=== PATIENT | female | born 1965 | race Caucasian/White ===

== ENCOUNTER 2020-04-30 06:35 | Day surgery (SDC) | payer BC ==
[~2020-04-30 06:35] MED LIST: Lactated Ringers 1,000 ML IV SCH
[2020-04-30] MEDS ORDERED: Midazolam 1 MG/ML 2 ML SDV ONE (06:59)
[2020-04-30] MEDS ORDERED: Propofol 200 MG/20 ML SDV ONE (06:59)
[2020-04-30] MEDS ORDERED: Ondansetron 4 MG/2 ML SDV ONE (06:59)
[2020-04-30] MEDS ORDERED: Lidocaine 2% 5 ML SDV ONE (06:59)
[2020-04-30] MEDS ORDERED: fentaNYL 250 MCG/5 ML SDV ONE (07:00)
--- NOTE | 2020-04-30 07:04 | PCM.PREANE ---
Preanesthetic Assessment - Anesthesia/Transfusion/Family Hx Anesthesia History: Prior Anesthesia Without Reaction Family History of Anesthesia Reaction: No Transfusion History: No Prior Transfusion(s) Intubation History: Unknown - Review of Systems General: No Symptoms Pulmonary: No Symptoms Cardiovascular: No Symptoms Gastrointestinal: No Symptoms Neurological: No Symptoms Other: Reports: None - Physical Assessment Height: 5 ft 0.75 in Weight: 77.111 kg ASA Class: 2 Mental Status: Alert & Oriented x3 Airway Class: Mallampati = 3 Dentition: Reports: Normal Dentition Thyro-Mental Finger Breadths: 3 Mouth Opening Finger Breadths: 2 ROM/Head Extension: Full Lungs: Clear to Auscultation, Normal Respiratory Effort Cardiovascular: Regular Rate, Regular Rhythm - Allergies Allergies/Adverse Reactions: Allergies Allergy/AdvReac Type Severity Reaction Status Date / Time No Known Allergies Allergy Verified 04/24/20 08:35 - Blood Blood Available: No - Anesthesia Plan Pre-Op Medication Ordered: None - Acknowledgements Anesthesia Type Planned: General Anesthesia Pt an Appropriate Candidate for the Planned Anesthesia: Yes Alternatives and Risks of Anesthesia Discussed w Pt/Guardian: Yes Pt/Guardian Understands and Agrees with Anesthesia Plan: Yes PreAnesthesia Questionnaire HEENT History: Reports: Other (See Below) Other HEENT History: wears glasses Cardiovascular History: Reports: High Cholesterol Other Cardiovascular History: takes lisinopril to protect her kidneys due to diabetes Respiratory History: Reports: None Gastrointestinal History: Reports: GERD Genitourinary History: Reports: Other (See Below) Other Genitourinary History: stress incontinence [employer] OFFICER History: Reports: Musculoskeletal History: Reports: Fracture Other Musculoskeletal History: hx fx rt hand Neurological History: Reports: None Psychiatric History: Reports: None Endocrine/Metabolic History: Reports: Diabetes, Type II, Obesity/BMI 30+ (BMI 32.4) Hematologic History: Reports: None Immunologic History: Reports: Other (See Below) (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) Oncologic (Cancer) History: Reports: None Dermatologic History: Reports: None - Past Surgical History Head Surgeries/Procedures: Reports: None HEENT Surgical History: Reports: Tonsillectomy Cardiovascular Surgical History: Reports: None Respiratory Surgical History: Reports: None GI Surgical History: Reports: None Female Surgical History: Reports: D&C, Hysterectomy, Salpingo-Oophorectomy Endocrine Surgical History: Reports: None Neurological Surgical History: Reports: None Musculoskeletal Surgical History: Reports: Other (See Below) Other Musculoskeletal Surgeries/Procedures:: rt ankle surgery, tendons clipped to both feet for planter fasciaitis Oncologic Surgical History: Reports: None Dermatological Surgical History: Reports: None - SUBSTANCE USE Tobacco Use Status *Q: Never Tobacco User Recreational Drug Use History: No - HOME MEDS Home Medications: Home Meds Calcium Carb,Gluc/Mag Ox,Gluc [Calcium Magnesium Caplet] 1 tab PO BEDTIME 04/24/20 [History] Cholecalciferol (Vitamin D3) [Vitamin D3] 5,000 units PO BEDTIME 04/24/20 [History] Insulin Glargine,Hum.Rec.Anlog [Lantus Solostar] 25 units SUBCUT DAILY 04/24/20 [History] Omeprazole 10 mg PO DAILY 04/24/20 [History] Potassium Gluconate [Potassium] 99 mg PO BEDTIME 04/24/20 [History] Pravastatin [Pravachol] 20 mg PO BEDTIME 04/24/20 [History] estradioL [Estradiol] 1 mg PO DAILY 04/24/20 [History] lisinopriL [Lisinopril] 10 mg PO DAILY 04/24/20 [History] metFORMIN HCl [Metformin HCl] 4 tab PO DAILY 04/24/20 [History] - CURRENT (IN HOUSE) MEDS Current Meds: Current Medications Lactated Ringer's (Ringers, Lactated) 1,000 mls @ 125 mls/hr IV ASDIRECTED BLADIMIR
[2020-04-30] MEDS ORDERED: Lidocaine 1% with EPINEPHrine 1:100,000 20 ML MDV ONE (07:15)
[2020-04-30] MEDS ORDERED: Neomycin/Polymyxin B Bladder Irrigation 1 ML Amp ONE (07:15)
[2020-04-30] MEDS ORDERED: Bupivacaine 0.25% 10 ML SDV ONE (07:15)
[2020-04-30 07:49] LABS: BLOOD UREA NITROGEN,BUN 17 mg/dL (7.0-18.0); CHLORIDE,CL 103 mmol/L (98-107); GLUCOSE RANDOM 224 mg/dL (74-106); POTASSIUM,K 4.1 mmol/L (3.5-5.1); SODIUM,NA 139 mmol/L (136-145)
[2020-04-30] MEDS ORDERED: Sodium Chloride 0.9% 20 ML ONE (08:15)
[2020-04-30] MEDS ORDERED: ceFAZolin 1 GM Vial ONE (08:15)
[2020-04-30] MEDS ORDERED: Naloxone 0.4 MG/ML Syringe IVPUSH PRN (08:18)
[2020-04-30] MEDS ORDERED: Atropine 0.1 MG/ML 10 ML Syringe IVPUSH PRN ×2 (08:18)
[2020-04-30] MEDS ORDERED: EPINEPHrine 1:10,000 1 MG/10 ML Syringe IVPUSH PRN (08:18)
[2020-04-30] MEDS ORDERED: 50% Dextrose in Water 50 ML Syringe IVPUSH PRN (08:18)
[2020-04-30] MEDS ORDERED: fentaNYL 100 MCG/2 ML SDV IVPUSH PRN (08:18)
[2020-04-30] MEDS ORDERED: Albuterol 0.083% 2.5 MG/3 ML Neb Soln NEB PRN (08:18)
[2020-04-30] MEDS ORDERED: Promethazine 25 MG/ML SDV IM PRN (08:48)
[2020-04-30] MEDS ORDERED: Morphine 4 MG/ML Syringe IVPUSH PRN (08:48)
[2020-04-30] MEDS ORDERED: Acetaminophen/oxyCODONE 325-5 MG Tab PO PRN ×2 (08:48)
[2020-04-30] MEDS ORDERED: Ketorolac 30 MG/ML SDV IVPUSH ONE (08:48)
[2020-04-30] MEDS ORDERED: Ondansetron 4 MG/2 ML SDV IVPUSH PRN (08:48)
--- NOTE | 2020-04-30 08:48 | PCM.OPNOTE ---
- General Post-Op/Procedure Note Date of Surgery/Procedure: 04/30/20 Operative Procedure(s): anterior colporrhaphy, single incision mid-urethral sling. Findings: 3rd degree cystocele, urethral hypermobility. Pre Op Diagnosis: symptomatic third degree cystocele with stress urinary incontinence. Post-Op Diagnosis: Same Anesthesia Technique: General ET Tube Primary Surgeon: Carissa Faustin Secondary Surgeon: Edu Mullins Anesthesia Provider: Ean Kwok Poker Manager: Daniel Torres Pathology: vaginal mucosa Fluid Replacement, Intraop: 1,000 EBL in mLs: 50 Drain/Tube Comments:: vaginal packing in place, barnes catheter in place Complications: None known Condition: Good
[2020-04-30] MEDS ORDERED: Glucagon,Human Recombinant 1 MG Vial IM PRN ×3 (08:53→11:59)
[2020-04-30] MEDS ORDERED: Insulin Regular, Human 100 Units/ML 10 ML Vial IVPUSH ONE (08:53)
[2020-04-30] MEDS ORDERED: 50% Dextrose in Water 50 ML Syringe IV PRN ×3 (08:53→11:59)
[2020-04-30] MEDS ORDERED: Non-Formulary Medication 1 Each (Omeprazole [Omeprazole] 10 MG) PO SCH (09:00)
[2020-04-30] MEDS ORDERED: Acetaminophen 1,000 MG in Premix Bag 1 BAG IV ONE (09:13)
--- NOTE | 2020-04-30 09:39 | PCM.POSTAN ---
POST ANESTHESIA ASSESSMENT - MENTAL STATUS Mental Status: Alert, Oriented - VITAL SIGNS Vital Signs: Last Vital Signs Temp 36.2 C 04/30/20 08:41 Pulse 74 04/30/20 09:31 Resp 12 04/30/20 09:31 BP 138/64 04/30/20 09:31 Pulse Ox 98 04/30/20 09:31 - RESPIRATORY Respiratory Status: Respiratory Rate WNL, Airway Patent, O2 Saturation Stable - CARDIOVASCULAR CV Status: Pulse Rate WNL, Blood Pressure Stable - GASTROINTESTINAL GI Status: No Symptoms - PAIN Pain Score: 2 - POST OP HYDRATION Hydration Status: Adequate & Stable - OBSERVATIONS Free Text/Narrative:: No anesthesia problems
[2020-04-30] MEDS: Insulin Glargine,Human Rec. Analog 100 Units/ML 3 ML Pen SUBCUT SCH (10:13)
[2020-04-30] MEDS: Lisinopril 10 MG Tab PO SCH (10:15)
[2020-04-30] MEDS: Ketorolac 15 MG/ML SDV IVPUSH SCH ×3 (10:17→21:45)
[2020-04-30] MEDS: Insulin Regular, Human 100 Units/ML 10 ML Vial SUBCUT SCH ×2 (12:41→19:02)
--- NOTE | 2020-04-30 12:47 | OR ---
SURGEON: Carissa Faustin M.D. DATE OF PROCEDURE: 04/30/2020 PREOPERATIVE DIAGNOSIS: Third-degree cystocele, stress urinary incontinence. POSTOPERATIVE DIAGNOSIS: Third-degree cystocele, stress urinary incontinence. PROCEDURE: Anterior colporrhaphy with midurethral single-incision sling. PRIMARY SURGEON: Carissa Faustin MD MONITORING COORDINATOR: Edu Mullins MD ANESTHESIA: General endotracheal. FLUIDS: 1000 mL of crystalloid. ESTIMATED BLOOD LOSS: 50 mL. FINDINGS: Third-degree , urethral hypermobility. COMPLICATIONS: None known. DISPOSITION: Stable to Recovery. BRIEF HISTORY: This is a 54-year-old female. She has frequent urination, a large amount, worse at night, and incontinence with coughing or sneezing. She has had a cystometry with reduction of the cystocele with demonstrated stress incontinence and urethral hypermobility. She has been treated for UTI symptoms and has had a negative followup culture. She would like to proceed with a midurethral sling at the time of anterior colporrhaphy. She has been counseled regarding the Solyx midurethral sling. She has been provided with a Stepsss pamphlet. She has been provided with information on Kegel exercises and declines conservative management. She has completed her preoperative primary care assessment due to diabetes. She was treated for bacterial vaginosis at the time of her initial evaluation for dyspareunia and the symptoms of dyspareunia have resolved. She, therefore, has a symptomatic third-degree cystocele with episodes of difficulty initiating voiding with stress urinary incontinence with reduction of the cystocele. She is, therefore, consented for an anterior colporrhaphy with Solyx single-incision midurethral sling with risks discussed including bleeding; infection; injury to bowel, bladder, blood vessels, ureters, or other organs; risk of thromboembolic event; risk of recurrence of 30% to 40%; risk of new onset of stress incontinence; risk of anesthesia; and risk of dyspareunia. With the Solyx, additional risk of mesh erosion; injury to nerves, urethra, bladder, and ureter; and possibility of requiring short-term catheterization. Understanding all these, she does desire to proceed. DESCRIPTION OF PROCEDURE: With the patient in the dorsal lithotomy position, the perineum and vagina were prepped with Betadine and draped in the usual fashion for a vaginal surgery. SCDs were in place. Ramírez catheter had been placed. An appropriate time-out was held. She had received 2 g of Ancef IV. The patient was placed in Trendelenburg position. A weighted speculum was placed posteriorly. An Allis clamp was placed approximately 2.5 cm cephalad from the urethral meatus. Hydrodissection was performed beneath the cystocele. A midline incision was initiated with a scalpel and Metzenbaum scissors were used to undermine the vaginal mucosa. The muscularis layer was from the overlying vaginal mucosa and reapproximated in the midline using multiple interrupted mattress sutures of 2-0 Polysorb. The vaginal mucosa was very slightly trimmed and reapproximated with a running lock suture of 0 Polysorb. Attention was then turned to the urethra. The Ramírez bulb was palpated indicating the length of the urethra and the Allis clamps were placed approximately 1.5 cm apart at the internal and external portion of the urethra. Hydrodissection was performed beneath the midline and extending out toward the pubic ramus on the right and the left. An incision was made with a scalpel in the midline. The Metzenbaum scissors were utilized to dissect out toward the pubic ramus to the right and the left. The Solyx midurethral sling was placed initially through the vaginal mucosa at a 45-degree angle aiming towards the pubic ramus and then passing more laterally through the obturator foramen. The first arm was released. The second arm was placed in a similar fashion. Metzenbaum scissors were placed between the sling and the urethra, and I was able to easily pass the Metzenbaum scissors and the urethra was well supported. Therefore, the second arm was released. The vaginal mucosa was closed with a running lock suture of 3-0 Polysorb. The vagina was packed. The Ramírez catheter was left in place. Final sponge, needle, and instrument counts were reported as correct. There were no known complications. The patient was transferred to Recovery. MALICK KING /[id number]
[2020-04-30] MEDS: Omeprazole 20 MG Cap.CR PO SCH (15:21)
[2020-04-30] MEDS ORDERED: Insulin Regular, Human 100 Units/ML 10 ML Vial SUBCUT SCH (17:00)
[2020-04-30] MEDS ORDERED: Pravastatin 40 MG Tab PO SCH (21:00)
[2020-05-01] MEDS: Ketorolac 15 MG/ML SDV IVPUSH SCH ×2 (03:45→09:39)
[2020-05-01] MEDS: Insulin Regular, Human 100 Units/ML 10 ML Vial SUBCUT SCH (06:38)
[2020-05-01] MEDS: Omeprazole 20 MG Cap.CR PO SCH (06:41)
[2020-05-01 07:03] LABS: BLOOD UREA NITROGEN,BUN 17 mg/dL (7.0-18.0); CARBON DIOXIDE,CO2 30.6 mmol/L (21.0-32.0); CHLORIDE,CL 103 mmol/L (98-107); GLUCOSE RANDOM 165 mg/dL (74-106); POTASSIUM,K 4.5 mmol/L (3.5-5.1); SODIUM,NA 140 mmol/L (136-145)
--- NOTE | 2020-05-01 07:44 | PCM48HPAN ---
Post Anesthesia Note - EVALUATION WITHIN 48HRS OF ANESTHETIC Vital Signs in Normal Range: Yes Patient Participated in Evaluation: Yes Respiratory Function Stable: Yes Airway Patent: Yes Cardiovascular Function Stable: Yes Hydration Status Stable: Yes Pain Control Satisfactory: Yes Nausea and Vomiting Control Satisfactory: Yes Mental Status Recovered: Yes Vital Signs: Last Vital Signs Temp 36.7 C 05/01/20 04:10 Pulse 71 05/01/20 04:10 Resp 16 05/01/20 04:10 BP 117/63 05/01/20 04:10 Pulse Ox 92 L 05/01/20 04:10 - COMMENTS/OBSERVATIONS Free Text/Narrative:: No anesthesia problems
--- NOTE | 2020-05-01 09:03 | PCM.SURGPN ---
- General Info Date of Service: 05/01/20 Date of Surgery/Procedure: 04/30/20 POD#: 1 Functional Status: Reports: Pain Controlled, Tolerating Diet, Ambulating, Urinating - Review of Systems General: Reports: No Symptoms HEENT: Reports: No Symptoms Pulmonary: Reports: No Symptoms Cardiovascular: Reports: No Symptoms Gastrointestinal: Reports: No Symptoms Genitourinary: Reports: No Symptoms Musculoskeletal: Reports: No Symptoms Skin: Reports: No Symptoms Neurological: Reports: No Symptoms Psychiatric: Reports: No Symptoms - Patient Data Vitals - Most Recent: Last Vital Signs Temp 36.7 C 05/01/20 04:10 Pulse 71 05/01/20 04:10 Resp 16 05/01/20 04:10 BP 117/63 05/01/20 04:10 Pulse Ox 92 L 05/01/20 04:10 Weight - Most Recent: 77.111 kg I&O - Last 24 Hours: Intake & Output 04/30/20 05/01/20 05/01/20 22:59 06:59 14:59 Intake Total 500 200 Output Total 350 700 Balance 150 -500 Lab Results Last 24 Hrs: Laboratory Results - last 24 hr 04/30/20 04/30/20 04/30/20 Range/Units 07:06 10:08 11:57 WBC (4.0-11.0) K/uL RBC (4.30-5.90) M/uL Hgb (12.0-16.0) g/dL Hct (36.0-46.0) % MCV (80.0-98.0) fL MCH (27.0-32.0) pg MCHC (31.0-37.0) g/dL RDW Std Deviation (28.0-62.0) fl RDW Coeff of Phuc (11.0-15.0) % Plt Count (150-400) K/uL MPV (7.40-12.00) fL Neut % (Auto) (48.0-80.0) % Lymph % (Auto) (16.0-40.0) % [place]own[place] % (Auto) (0.0-15.0) % Eos % (Auto) (0.0-7.0) % Baso % (Auto) (0.0-1.5) % Neut # (Auto) (1.4-5.7) K/uL Lymph # (Auto) (0.6-2.4) K/uL [place]own[place] # (Auto) (0.0-0.8) K/uL Eos # (Auto) (0.0-0.7) K/uL Baso # (Auto) (0.0-0.1) K/uL Nucleated RBC % /100WBC Nucleated RBCs # K/uL Sodium (136-145) mmol/L Potassium (3.5-5.1) mmol/L Chloride (98-107) mmol/L Carbon Dioxide (21.0-32.0) mmol/L BUN (7.0-18.0) mg/dL Creatinine (0.6-1.0) mg/dL Est Cr Clr Drug Dosing mL/min Estimated GFR (MDRD) ml/min Glucose (74-106) mg/dL POC Glucose 203 H 194 H 152 H (60-110) mg/dL Calcium (8.5-10.1) mg/dL 04/30/20 05/01/20 05/01/20 Range/Units 17:45 05:55 06:18 WBC 6.37 (4.0-11.0) K/uL RBC 3.96 L (4.30-5.90) M/uL Hgb 11.5 L (12.0-16.0) g/dL Hct 35.5 L (36.0-46.0) % MCV 89.6 (80.0-98.0) fL MCH 29.0 (27.0-32.0) pg MCHC 32.4 (31.0-37.0) g/dL RDW Std Deviation 41.8 (28.0-62.0) fl RDW Coeff of Phuc 13 (11.0-15.0) % Plt Count 204 (150-400) K/uL MPV 10.10 (7.40-12.00) fL Neut % (Auto) 57.7 (48.0-80.0) % Lymph % (Auto) 31.7 (16.0-40.0) % [place]own[place] % (Auto) 7.1 (0.0-15.0) % Eos % (Auto) 2.7 (0.0-7.0) % Baso % (Auto) 0.8 (0.0-1.5) % Neut # (Auto) 3.7 (1.4-5.7) K/uL Lymph # (Auto) 2.0 (0.6-2.4) K/uL Lowndes # (Auto) 0.5 (0.0-0.8) K/uL Eos # (Auto) 0.2 (0.0-0.7) K/uL Baso # (Auto) 0.1 (0.0-0.1) K/uL Nucleated RBC % 0.0 /100WBC Nucleated RBCs # 0 K/uL Sodium (136-145) mmol/L Potassium (3.5-5.1) mmol/L Chloride (98-107) mmol/L Carbon Dioxide (21.0-32.0) mmol/L BUN (7.0-18.0) mg/dL Creatinine (0.6-1.0) mg/dL Est Cr Clr Drug Dosing mL/min Estimated GFR (MDRD) ml/min Glucose (74-106) mg/dL POC Glucose 120 H 188 H (60-110) mg/dL Calcium (8.5-10.1) mg/dL 05/01/20 Range/Units 06:18 WBC (4.0-11.0) K/uL RBC (4.30-5.90) M/uL Hgb (12.0-16.0) g/dL Hct (36.0-46.0) % MCV (80.0-98.0) fL MCH (27.0-32.0) pg MCHC (31.0-37.0) g/dL RDW Std Deviation (28.0-62.0) fl RDW Coeff of Phuc (11.0-15.0) % Plt Count (150-400) K/uL MPV (7.40-12.00) fL Neut % (Auto) (48.0-80.0) % Lymph % (Auto) (16.0-40.0) % [place] % (Auto) (0.0-15.0) % Eos % (Auto) (0.0-7.0) % Baso % (Auto) (0.0-1.5) % Neut # (Auto) (1.4-5.7) K/uL Lymph # (Auto) (0.6-2.4) K/uL [place] # (Auto) (0.0-0.8) K/uL Eos # (Auto) (0.0-0.7) K/uL Baso # (Auto) (0.0-0.1) K/uL Nucleated RBC % /100WBC Nucleated RBCs # K/uL Sodium 140 (136-145) mmol/L Potassium 4.5 (3.5-5.1) mmol/L Chloride 103 (98-107) mmol/L Carbon Dioxide 30.6 (21.0-32.0) mmol/L BUN 17 (7.0-18.0) mg/dL Creatinine 0.8 (0.6-1.0) mg/dL Est Cr Clr Drug Dosing 58.54 mL/min Estimated GFR (MDRD) > 60.0 ml/min Glucose 165 H (74-106) mg/dL POC Glucose (60-110) mg/dL Calcium 9.1 (8.5-10.1) mg/dL Med Orders - Current: Current Medications Dextrose/Water (Dextrose 50% In Water) 50 ml IV ASDIRECTED PRN PRN Reason: Hypoglycemia Glucagon (Glucagen) 1 mg IM ASDIRECTED PRN PRN Reason: Hypoglycemia Insulin Glargine (Lantus Solostar) 25 units SUBCUT DAILY [facility] Last Admin: 04/30/20 10:13 Dose: 25 unit Documented by: Insulin Human Regular (Novolin R) 0 unit SUBCUT TIDAC [facility]; Protocol Last Admin: 05/01/20 06:38 Dose: 2 unit Documented by: Ketorolac Tromethamine (Toradol) 15 mg IVPUSH Q6H [facility] Last Admin: 05/01/20 03:45 Dose: 15 mg Documented by: Lisinopril (Prinivil) 10 mg PO DAILY [facility] Last Admin: 04/30/20 10:15 Dose: 10 mg Documented by: Morphine Sulfate (Morphine) 4 mg IVPUSH Q2H PRN PRN Reason: Pain (severe 7-10) Omeprazole (Omeprazole) 20 mg PO ACBREAKFAST [facility] Last Admin: 05/01/20 06:41 Dose: 20 mg Documented by: Ondansetron HCl (Zofran) 4 mg IVPUSH Q6H PRN PRN Reason: Nausea/Vomiting Oxycodone/Acetaminophen (Percocet 325-5 Mg) 1 tab PO Q4H PRN PRN Reason: Pain (moderate 4-6) Last Admin: 04/30/20 16:38 Dose: 1 tab Documented by: Oxycodone/Acetaminophen (Percocet 325-5 Mg) 2 tab PO Q4H PRN PRN Reason: Pain (moderate 4-6) Pravastatin Sodium (Pravachol) 20 mg PO BEDTIME [facility] Last Admin: 04/30/20 21:44 Dose: 20 mg Documented by: Promethazine HCl (Phenergan) 25 mg IM Q6H PRN PRN Reason: Nausea/Vomiting Discontinued Medications Albuterol (Proventil Neb Soln) 2.5 mg NEB ONETIME PRN PRN Reason: Wheezing Atropine Sulfate (Atropine 0.1 Mg/Ml) 0.5 mg IVPUSH ASDIRECTED PRN PRN Reason: Hypo-perfusion Atropine Sulfate (Atropine 0.1 Mg/Ml) 1 mg IVPUSH ASDIRECTED PRN PRN Reason: Hypo-Perfusion Bupivacaine HCl (Sensorcaine-Mpf 0.25%) Confirm Administered Dose 10 ml .ROUTE .STK-MED ONE Stop: 04/30/20 07:16 Cefazolin Sodium (Ancef) Confirm Administered Dose 2 gm .ROUTE .STK-MED ONE Stop: 04/30/20 08:16 Dextrose/Water (Dextrose 50% In Water) 50 ml IVPUSH ASDIRECTED PRN PRN Reason: Hypoglycemia Epinephrine HCl (Epinephrine 1:10,000) 1 mg IVPUSH ASDIRECTED PRN PRN Reason: ACLS Guidelines Fentanyl (Sublimaze) Confirm Administered Dose 250 mcg .ROUTE .STK-MED ONE Stop: 04/30/20 07:01 Fentanyl (Sublimaze) 50 - 100 mcg IVPUSH Q5M PRN PRN Reason: Pain Last Admin: 04/30/20 09:20 Dose: 50 mcg Documented by: Lactated Ringer's (Ringers, Lactated) 1,000 mls @ 125 mls/hr IV ASDIRECTED [facility] Last Admin: 04/30/20 06:55 Dose: 125 mls/hr Documented by: Sodium Chloride (Normal Saline) Confirm Administered Dose 20 mls @ as directed .ROUTE .STK-MED ONE Stop: 04/30/20 08:16 Acetaminophen 1,000 mg/ Premix 100 mls @ 400 mls/hr IV NOW ONE Stop: 04/30/20 09:27 Last Admin: 04/30/20 09:15 Dose: 400 mls/hr Documented by: Acetaminophen (Ofirmev) Confirm Administered Dose 100 mls @ as directed .ROUTE .STK-MED ONE Stop: 04/30/20 09:15 Last Admin: 04/30/20 11:49 Dose: Not Given Documented by: Insulin Human Regular (Novolin R) 1 unit IVPUSH ONETIME ONE; Protocol Stop: 04/30/20 08:54 Last Admin: 04/30/20 12:20 Dose: Not Given Documented by: Insulin Human Regular (Novolin R) 0 unit SUBCUT TIDAC [facility]; Protocol Ketorolac Tromethamine (Toradol) 15 mg IVPUSH ONETIME ONE Stop: 04/30/20 08:49 Last Admin: 04/30/20 08:58 Dose: 15 mg Documented by: Lidocaine (Xylocaine-Mpf 2%) Confirm Administered Dose 5 ml .ROUTE .STK-MED ONE Stop: 04/30/20 07:00 Lidocaine/Epinephrine (Xylocaine 1% With Epinephrine 1:100,000) Confirm Administered Dose 20 ml .ROUTE .STK-MED ONE Stop: 04/30/20 07:16 Midazolam HCl (Versed 1 Mg/Ml) Confirm Administered Dose 2 mg .ROUTE .STK-MED ONE Stop: 04/30/20 07:00 Naloxone HCl (Narcan) 0.1 mg IVPUSH ASDIRECTED PRN PRN Reason: Respiratory Depression Neomycin/Polymyxin (Neosporin Gu Irrigant) Confirm Administered Dose 1 ml .ROUTE .STK-MED ONE Stop: 04/30/20 07:16 Non-Formulary Medication (Omeprazole [Omeprazole]) 10 mg PO DAILY [facility] Last Admin: 04/30/20 11:50 Dose: Not Given Documented by: Ondansetron HCl (Zofran) Confirm Administered Dose 4 mg .ROUTE .STK-MED ONE Stop: 04/30/20 07:00 Propofol (Diprivan 20 Ml) Confirm Administered Dose 200 mg .ROUTE .STK-MED ONE Stop: 04/30/20 07:00 - Exam General: Alert Cardiovascular: Regular Rate, Regular Rhythm GI/Abdominal Exam: Normal Bowel Sounds, Soft, Non-Tender, No Organomegaly, No Distention, No Abnormal Bruit, No Mass Extremities: Normal Inspection, Non-Tender, No Pedal Edema Skin: Warm, Dry, Intact Neurological: No New Focal Deficit Psy/Mental Status: Alert, Normal Affect, Normal Mood Sepsis Event Note - Evaluation Sepsis Screening Result: No Definite Risk - Focused Exam Vital Signs: Vital Signs Temp Pulse Resp BP Pulse Ox 05/01/20 04:10 36.7 C 71 16 117/63 92 L 05/01/20 00:23 36.4 C 76 16 118/67 94 L - Problem List & Annotations (1) Cystocele SNOMED Code(s): 194129218 Code(s): FWZ6922 - Status: Acute Current Visit: Yes (2) Stress incontinence SNOMED Code(s): 84262078 Code(s): N39.3 - STRESS INCONTINENCE (FEMALE) (MALE) Status: Acute Current Visit: Yes - Problem List Review Problem List Initiated/Reviewed/Updated: Yes - My Orders Last 24 Hours: Active Orders 24 hr Category Date Time Status Patient Status [ADT] Routine ADT 04/30/20 08:48 Active Antiembolic Devices [RC] PER UNIT ROUTINE Care 04/30/20 08:49 Active Blood Glucose Check, Bedside [RC] PRN Care 04/30/20 08:18 Active Blood Glucose Check, Bedside [RC] QIDACANDBED Care 04/30/20 08:48 Active Notify Provider Intake and Out [RC] ASDIRECTED Care 04/30/20 08:48 Active Notify Provider Vital Signs [RC] ASDIRECTED Care 04/30/20 08:18 Active Notify Provider Vital Signs [RC] ASDIRECTED Care 04/30/20 08:48 Active Oxygen Therapy [RC] ASDIRECTED Care 04/30/20 08:48 Active Oxygen Therapy [RC] PRN Care 04/30/20 08:18 Active RT Aerosol Therapy [RC] ASDIRECTED Care 04/30/20 08:18 Active RT Aerosol Therapy [RC] ASDIRECTED Care 04/30/20 08:18 Active RT Aerosol Therapy [RC] ASDIRECTED Care 04/30/20 08:18 Active RT Incentive Spirometry [RC] Q2HWA Care 04/30/20 08:48 Active Ready for Discharge [RC] PER UNIT ROUTINE Care 05/01/20 09:00 Ordered Up With Assistance [RC] PER UNIT ROUTINE Care 04/30/20 08:48 Active Up ad Milagro [RC] PER UNIT ROUTINE Care 04/30/20 08:48 Active Vital Signs [RC] PER UNIT ROUTINE Care 04/30/20 08:48 Active Vital Signs [RC] Q5M Care 04/30/20 08:18 Active Consistent Carbohydrate Diet [DIET] Diet 04/30/20 Lunch Active Acetaminophen/oxyCODONE [Percocet 325-5 MG] Med 04/30/20 08:48 Active 1 tab PO Q4H PRN Acetaminophen/oxyCODONE [Percocet 325-5 MG] Med 04/30/20 08:48 Active 2 tab PO Q4H PRN Dextrose 50% in Water Med 04/30/20 08:53 Active 50 ml IV ASDIRECTED PRN Glucagon,Human Recombinant [GlucaGen] Med 04/30/20 08:53 Active 1 mg IM ASDIRECTED PRN Insulin Glarg,Human.Rec.Analog [LantUS Solostar] Med 04/30/20 09:00 Active 25 units SUBCUT DAILY Insulin Regular, Human [NovoLIN R] Med 04/30/20 12:02 Active See Protocol SUBCUT TIDAC Ketorolac [Toradol] Med 04/30/20 09:00 Active 15 mg IVPUSH Q6H Morphine Med 04/30/20 08:48 Active 4 mg IVPUSH Q2H PRN Omeprazole Med 04/30/20 15:15 Active 20 mg PO ACBREAKFAST Ondansetron [Zofran] Med 04/30/20 08:48 Active 4 mg IVPUSH Q6H PRN Pravastatin [Pravachol] Med 04/30/20 21:00 Active 20 mg PO BEDTIME Promethazine [Phenergan] Med 04/30/20 08:48 Active 25 mg IM Q6H PRN lisinopriL [Prinivil] Med 04/30/20 09:00 Active 10 mg PO DAILY Peripheral IV Discontinue [OM.PC] Routine Oth 04/30/20 08:48 Ordered Remove Vaginal Packing [OM.PC] Per Unit Routine Oth 04/30/20 08:49 Ordered Sequential Compression Device [OM.PC] Per Unit Routine Oth 04/30/20 08:48 Ordered Resuscitation Status Routine Resus Stat 04/30/20 08:48 Ordered Medication Orders Dextrose/Water (Dextrose 50% In Water) 50 ml IV ASDIRECTED PRN PRN Reason: Hypoglycemia Glucagon (Glucagen) 1 mg IM ASDIRECTED PRN PRN Reason: Hypoglycemia Insulin Glargine (Lantus Solostar) 25 units SUBCUT DAILY [facility] Last Admin: 04/30/20 10:13 Dose: 25 unit Documented by: ALICIA Insulin Human Regular (Novolin R) 0 unit SUBCUT TIDAC [facility]; Protocol Last Admin: 05/01/20 06:38 Dose: 2 unit Documented by: Admin: 04/30/20 19:02 Dose: Not Given Documented by: Admin: 04/30/20 12:41 Dose: 2 unit Documented by: ALICIA Ketorolac Tromethamine (Toradol) 15 mg IVPUSH Q6H [facility] Last Admin: 05/01/20 03:45 Dose: 15 mg Documented by: Admin: 04/30/20 21:45 Dose: 15 mg Documented by: Admin: 04/30/20 15:17 Dose: 15 mg Documented by: Admin: 04/30/20 10:17 Dose: Not Given Documented by: ALICIA Lisinopril (Prinivil) 10 mg PO DAILY [facility] Last Admin: 04/30/20 10:15 Dose: 10 mg Documented by: ALICIA Morphine Sulfate (Morphine) 4 mg IVPUSH Q2H PRN PRN Reason: Pain (severe 7-10) Omeprazole (Omeprazole) 20 mg PO ACBREAKFAST [facility] Last Admin: 05/01/20 06:41 Dose: 20 mg Documented by: Admin: 04/30/20 15:21 Dose: 20 mg Documented by: ALICIA Ondansetron HCl (Zofran) 4 mg IVPUSH Q6H PRN PRN Reason: Nausea/Vomiting Oxycodone/Acetaminophen (Percocet 325-5 Mg) 1 tab PO Q4H PRN PRN Reason: Pain (moderate 4-6) Last Admin: 04/30/20 16:38 Dose: 1 tab Documented by: NANDO Oxycodone/Acetaminophen (Percocet 325-5 Mg) 2 tab PO Q4H PRN PRN Reason: Pain (moderate 4-6) Pravastatin Sodium (Pravachol) 20 mg PO BEDTIME [facility] Last Admin: 04/30/20 21:44 Dose: 20 mg Documented by: [id number] Promethazine HCl (Phenergan) 25 mg IM Q6H PRN PRN Reason: Nausea/Vomiting - Assessment Assessment (Free Text/Narrative):: POD#1 after anterior colporrhaphy and midurethral sling. Packing was taken out this am, voided over 300 ml after instillation of 300 in bladder. She denies pain and is ambulating and eating. - Plan Plan (Free Text/Narrative):: Discharge instructions reviewed. She will resume metformin tomorrow as well as lantus.
[2020-05-01] MEDS: Insulin Glargine,Human Rec. Analog 100 Units/ML 3 ML Pen SUBCUT SCH (09:37)
[2020-05-01] MEDS: Lisinopril 10 MG Tab PO SCH (09:41)
== END 2020-05-01 09:55 | disposition home or self-care (01) ==
LOC: MW.SDS 06:35 → MW.MS 08:46 → MW.SDS 05-01 09:55
PROVIDERS: ATTEND Obstetrics & Gynecology
DX: N81.11 Cystocele, midline (principal); N39.3 Stress incontinence (female) (male); E11.9 Type 2 diabetes mellitus without complications; E78.00 Pure hypercholesterolemia, unspecified; K21.9 Gastro-esophageal reflux disease without esophagitis; E66.9 Obesity, unspecified; Z68.32 Body mass index [BMI] 32.0-32.9, adult; Z86.19 Personal history of other infectious and parasitic diseases; Z79.899 Other long term (current) drug therapy; Z79.4 Long term (current) use of insulin; Z98.890 Other specified postprocedural states; Z87.440 Personal history of urinary (tract) infections
CPT/HCPCS: 36415; 57240; 57288; 80048; 82962; 85025; 85027; 86850; 86900; 86901; 88305; A9270; C1771; J0131; J0690; J1815; J1885; J2001; J2250; J2704; J3010; J3490; J7120; J2405

== ENCOUNTER 2021-05-29 01:02 | Observation (INO) | payer BC ==
[2021-05-29] MEDS ORDERED: Morphine 4 MG/ML VIAL IVPUSH ONE (01:26)
[2021-05-29] MEDS ORDERED: Ondansetron 4 MG/2 ML SDV IVPUSH ONE (01:26)
[2021-05-29] MEDS ORDERED: Lactated Ringers 1,000 ML IV STA (01:35)
[2021-05-29] MEDS ORDERED: Levofloxacin/Dextrose 5%-Water 750 MG in Premix Bag 1 BAG IV STA (01:55)
[2021-05-29] MEDS ORDERED: Ondansetron 4 MG/2 ML SDV ONE ×2 (01:57→02:57)
[2021-05-29] MEDS ORDERED: Sugammadex Sodium 200 MG/2 ML VIAL ONE (01:57)
[2021-05-29] MEDS ORDERED: fentaNYL 100 MCG/2 ML SDV ONE (01:57)
[2021-05-29] MEDS ORDERED: Dexamethasone 4 MG/ML 5 ML MDV ONE (01:57)
[2021-05-29] MEDS ORDERED: Propofol 200 MG/20 ML SDV ONE (01:57)
[2021-05-29] MEDS ORDERED: Rocuronium Bromide 50 MG/5 ML Syringe ONE (01:57)
[2021-05-29] MEDS ORDERED: Lidocaine 2% 100 MG/5 ML Syringe ONE (01:57)
[2021-05-29] MEDS ORDERED: fentaNYL 250 MCG/5 ML SDV ONE (02:00)
[2021-05-29] MEDS ORDERED: Lidocaine 2% 5 ML SDV ONE (02:01)
[2021-05-29] MEDS ORDERED: Morphine 4 MG/ML VIAL IVPUSH PRN (02:20)
[2021-05-29] MEDS ORDERED: HYDROmorphone 1 MG/ML Syringe IVPUSH PRN (02:20)
[2021-05-29] MEDS ORDERED: Ondansetron 4 MG/2 ML SDV IVPUSH PRN ×2 (02:20→04:57)
[2021-05-29] MEDS ORDERED: Albuterol 0.083% 2.5 MG/3 ML Neb Soln NEB PRN (02:20)
[2021-05-29] MEDS ORDERED: fentaNYL 100 MCG/2 ML SDV IVPUSH PRN (02:20)
[2021-05-29] MEDS ORDERED: Metoclopramide 10 MG/2 ML SDV IVPUSH PRN (02:20)
[2021-05-29] MEDS ORDERED: Naloxone 0.4 MG/ML SDV IVPUSH PRN (02:20)
[2021-05-29] MEDS ORDERED: Bupivacaine 25%/EPINEPHrine/PF 30 ML ONE (02:40)
[2021-05-29] MEDS ORDERED: Bupivacaine 0.5% 30 ML SDV ONE (02:40)
[2021-05-29] MEDS ORDERED: Calcium Gluconate 10% 1 GM/10 ML SDV ONE (02:50)
[2021-05-29] MEDS ORDERED: Scopolamine 1.5 MG Transdermal Patch ONE (03:51)
[2021-05-29] MEDS ORDERED: Ketorolac 30 MG/ML SDV ONE (04:47)
[2021-05-29] MEDS ORDERED: Lactated Ringers 1,000 ML IV SCH (05:00)
[2021-05-29] MEDS: cefOXitin 1 GM in Premix Bag 1 BAG IV SCH ×4 (05:40→22:59)
[2021-05-29] MEDS: Acetaminophen/oxyCODONE 325-5 MG Tab PO PRN ×3 (07:40→20:17)
[2021-05-29] MEDS: Morphine 4 MG/ML VIAL IVPUSH PRN (22:57)
[2021-05-30] MEDS: Acetaminophen/oxyCODONE 325-5 MG Tab PO PRN ×3 (04:08→20:13)
[2021-05-30] MEDS: Morphine 4 MG/ML VIAL IVPUSH PRN (09:16)
[2021-05-30] MEDS ORDERED: Albuterol/Ipratropium 3.0-0.5 MG/3 ML Neb Soln NEB PRN (12:19)
[2021-05-30] MEDS: Lactated Ringers 1,000 ML IV SCH (18:08)
[2021-05-30] MEDS: Amoxicillin/Clavulanate K 875-125 MG Tab PO SCH (18:08)
[2021-05-30 19:05] LABS: BLOOD UREA NITROGEN,BUN 12 mg/dL (7.0-18.0); CARBON DIOXIDE,CO2 27.5 mmol/L (21.0-32.0); CHLORIDE,CL 96 mmol/L (98-107); GLUCOSE RANDOM 216 mg/dL (74-106); POTASSIUM,K 4.1 mmol/L (3.5-5.1); SODIUM,NA 131 mmol/L (136-145)
[2021-05-30] MEDS ORDERED: Amoxicillin/Clavulanate K 875-125 MG Tab PO SCH (21:00)
[2021-05-30] MEDS: Docusate Sodium 100 MG Cap PO PRN (22:21)
[2021-05-30] MEDS ORDERED: Iopamidol 755 MG/ML 500 ML Multipack Bottle IVPUSH STA (23:30)
[2021-05-31] MEDS ORDERED: Omeprazole 20 MG Cap.CR PO ONE ×2 (00:32→04:48)
[2021-05-31] MEDS: Amoxicillin/Clavulanate K 875-125 MG Tab PO SCH (08:21)
[2021-05-31] MEDS: Acetaminophen/oxyCODONE 325-5 MG Tab PO PRN ×2 (08:21→20:15)
[2021-05-31] MEDS ORDERED: Docusate Sodium 100 MG Cap PO PRN (09:53)
[2021-05-31] MEDS: Docusate Sodium 100 MG Cap PO SCH (10:32)
[2021-05-31] MEDS: Lactated Ringers 1,000 ML IV SCH ×2 (10:34→10:35)
[2021-05-31 11:33] LABS: CORONAVIRUS COVID-19 NAA NEGATIVE (NEGATIVE); INFLUENZA A NAA NEGATIVE (NEGATIVE); INFLUENZA B NAA NEGATIVE (NEGATIVE); RESPIRATORY SYNCYTIAL VIR NAA NEGATIVE (NEGATIVE)
[2021-05-31] MEDS ORDERED: Glucagon,Human Recombinant 1 MG Vial IM PRN (13:06)
[2021-05-31] MEDS ORDERED: 50% Dextrose in Water 50 ML Syringe IVPUSH PRN (13:06)
[2021-05-31 13:19] LABS: BLOOD UREA NITROGEN,BUN 12 mg/dL (7.0-18.0); CARBON DIOXIDE,CO2 29.7 mmol/L (21.0-32.0); CHLORIDE,CL 96 mmol/L (98-107); GLUCOSE RANDOM 232 mg/dL (74-106); POTASSIUM,K 4.1 mmol/L (3.5-5.1); SODIUM,NA 133 mmol/L (136-145)
[2021-05-31] MEDS: Levofloxacin/Dextrose 5%-Water 750 MG in Premix Bag 1 BAG IV SCH (13:56)
[2021-05-31] MEDS ORDERED: Piperacillin/Tazobactam 3.375 GM in Sodium Chloride 0.9% 50 ML IV SCH (14:30)
[2021-05-31] MEDS: Piperacillin/Tazobactam 3.375 GM in Sodium Chloride 0.9% 50 ML IV SCH ×2 (15:51→21:57)
[2021-05-31] MEDS: Insulin Aspart 100 Units/ML 3 ML Pen SUBCUT SCH (17:45)
[2021-05-31] MEDS: Docusate Sodium 100 MG Cap PO PRN (20:29)
[2021-05-31] MEDS ORDERED: POTASSIUM GLUCONATE 99 MG PO SCH (21:00)
[2021-05-31] MEDS ORDERED: MAG OX GLUC PO SCH (21:00)
[2021-05-31] MEDS ORDERED: Cholecalciferol (Vitamin D3) 25 MCG Tab PO SCH (21:00)
[2021-05-31] MEDS ORDERED: Lisinopril 10 MG Tab PO SCH (21:00)
[2021-05-31] MEDS ORDERED: Pravastatin 40 MG Tab PO SCH (21:00)
[2021-05-31] MEDS ORDERED: CALCIUM CARB GLUC PO SCH (21:00)
[2021-05-31] MEDS ORDERED: Estradiol 1 MG Tablet PO SCH (21:00)
[2021-05-31] MEDS ORDERED: Diazepam 2 MG Tab PO PRN (22:59)
[2021-06-01] MEDS: Acetaminophen/oxyCODONE 325-5 MG Tab PO PRN ×3 (02:07→12:50)
[2021-06-01] MEDS: Piperacillin/Tazobactam 3.375 GM in Sodium Chloride 0.9% 50 ML IV SCH ×2 (04:53→10:45)
[2021-06-01] MEDS: Lactated Ringers 1,000 ML IV SCH (04:58)
[2021-06-01] MEDS ORDERED: Omeprazole 20 MG Cap.CR PO SCH (07:30)
[2021-06-01 08:02] LABS: BLOOD UREA NITROGEN,BUN 11 mg/dL (7.0-18.0); CARBON DIOXIDE,CO2 27.9 mmol/L (21.0-32.0); CHLORIDE,CL 97 mmol/L (98-107); GLUCOSE RANDOM 227 mg/dL (74-106); POTASSIUM,K 4.5 mmol/L (3.5-5.1); SODIUM,NA 134 mmol/L (136-145)
[2021-06-01] MEDS: Docusate Sodium 100 MG Cap PO SCH (08:37)
[2021-06-01] MEDS: Insulin Aspart 100 Units/ML 3 ML Pen SUBCUT SCH ×2 (08:39→12:44)
[2021-06-01] MEDS ORDERED: Insulin Glargine,Human Rec. Analog 100 Units/ML 3 ML Pen SUBCUT SCH ×2 (09:00)
[2021-06-01] MEDS ORDERED: Bisacodyl 10 MG Supp RECTAL ONE (09:00)
[2021-06-01] MEDS: Levofloxacin/Dextrose 5%-Water 750 MG in Premix Bag 1 BAG IV SCH (13:42)
== END 2021-06-01 15:50 | disposition home or self-care (01) ==
LOC: MW.ED 01:02 → MW.MS 01:34 → MW.SDS 01:34 → MW.MS 19:56
PROVIDERS: ADMIT Surgery; ATTEND Surgery
DX: K35.32 Acute appendicitis with perforation, localized peritonitis, and gangrene, without abscess (principal); Z01.812 Encounter for preprocedural laboratory examination; Z20.822 Contact with and (suspected) exposure to COVID-19
CPT/HCPCS: 0241U; 36415; 44970; 71275; 80053; 82947; 85025; 87635; A9270; J0131; J0610; J0694; J1100; J1815; J1885; J1956; J2270; J2370; J2405; J2543; J2704; J3010; J3490; J7120; Q9967; U0002

== ENCOUNTER 2021-08-14 06:15 | Day surgery (SDC) | payer BC ==
[~2021-08-14 06:15] MED LIST changes: +Albuterol 0.083% 2.5 MG/3 ML Neb Soln NEB PRN; +HYDROmorphone 1 MG/ML Syringe IVPUSH PRN; +Metoclopramide 10 MG/2 ML SDV IVPUSH PRN; +Morphine 4 MG/ML VIAL IVPUSH PRN; +Naloxone 0.4 MG/ML SDV IVPUSH PRN; +Ondansetron 4 MG/2 ML SDV IVPUSH PRN; +ceFAZolin 2 GM in Premix Bag 1 BAG IV ONE; +fentaNYL 100 MCG/2 ML SDV IVPUSH PRN
[2021-08-14] MEDS ORDERED: Propofol 200 MG/20 ML SDV ONE (07:20)
[2021-08-14] MEDS ORDERED: Dexmedetomidine 200 MCG/2 ML SDV ONE (07:20)
[2021-08-14] MEDS ORDERED: fentaNYL 100 MCG/2 ML SDV ONE (07:20)
[2021-08-14] MEDS ORDERED: Bupivacaine 0.25%/EPINEPHrine 1:200,000 10 ML SDV ONE ×2 (07:20)
[2021-08-14] MEDS ORDERED: Octyl 2-Cyanoacrylate 1 Tube ONE (07:20)
[2021-08-14] MEDS ORDERED: Lidocaine 1% 5 ML VIAL ONE (07:21)
[2021-08-14] MEDS ORDERED: Rocuronium Bromide 50 MG/5 ML Syringe ONE (07:21)
[2021-08-14] MEDS ORDERED: Water For Injection, Sterile 20 ML ONE (07:21)
[2021-08-14] MEDS ORDERED: Esmolol 100 MG/10 ML SDV ONE (07:21)
[2021-08-14] MEDS ORDERED: Scopolamine 1.5 MG Transdermal Patch ONE (07:26)
[2021-08-14] MEDS ORDERED: Acetaminophen/oxyCODONE 325-5 MG Tab PO PRN (07:49)
[2021-08-14] MEDS ORDERED: Morphine 2 MG/ML SYRINGE IVPUSH PRN (07:50)
[2021-08-14] MEDS ORDERED: ceFAZolin 1 GM Vial ONE (08:00)
[2021-08-14] MEDS ORDERED: ePHEDrine 50 MG/ML SDV ONE (08:19)
[2021-08-14] MEDS ORDERED: Ketorolac 30 MG/ML SDV ONE (08:25)
[2021-08-14] MEDS ORDERED: Sugammadex Sodium 200 MG/2 ML VIAL ONE (08:25)
[2021-08-14] MEDS ORDERED: Ondansetron 4 MG/2 ML SDV ONE (08:25)
[2021-08-14] MEDS ORDERED: Ondansetron 4 MG/2 ML SDV IVPUSH PRN (09:42)
== END 2021-08-14 12:40 | disposition home or self-care (01) ==
LOC: MW.SDS 06:15
PROVIDERS: ATTEND Surgery
DX: K81.2 Acute cholecystitis with chronic cholecystitis (principal); Z90.49 Acquired absence of other specified parts of digestive tract; Z88.8 Allergy status to other drugs, medicaments and biological substances; Z79.899 Other long term (current) drug therapy
CPT/HCPCS: 47562; 82947; A9270; J0131; J0690; J1170; J2370; J2704; J3010; J3490; J7120; 00790; J1885; J2405